=== PATIENT | female | born 1930 | race Caucasian/White ===

== ENCOUNTER 2017-06-27 16:37 | Observation (INO) | payer MEDICARE ==
--- NOTE | 2017-06-27 17:47 | ERPHSYRPT ---
- History of Present Illness Time Seen by Provider: 06/27/17 16:53 Source: patient Exam Limitations: no limitations Patient Subjective Stated Complaint: started having pain right lower leg yesterday. denies hx of dvt. Triage Nursing Assessment: to room per w/c. skin w/d, color normal. right leg tender to touch. no increased heat noted to leg. no swelling noted. good pedal pulse. Physician History: Pt started c/o pain ion her right lower leg since yesterday. She denies injury , no significant swelling, no chest pain, cough, SOB, wheezing or fever. She has varicose veins, but denies surgery or blood clots in the past. Occurred: yesterday Quality: constant Severity of Pain-Max: mild Severity of Pain-Current: mild Lower Extremities Pain: leg: right Modifying Factors: Improves With: nothing Associated Symptoms: none Allergies/Adverse Reactions: aspirin Allergy (Verified 06/27/17 16:51) Penicillins Allergy (Verified 06/27/17 16:50) Hx Tetanus, Diphtheria Vaccination/Date Given: No Hx Influenza Vaccination/Date Given: Yes Hx Pneumococcal Vaccination/Date Given: No - Review of Systems Constitutional: No Symptoms Respiratory: No Symptoms Cardiac: No Symptoms Musculoskeletal: Other (right lower leg pain) All Other Systems: Reviewed and Negative - Past Medical History Pertinent Past Medical History: Yes Neurological History: No Pertinent History ENT History: Cataracts Cardiac History: Arrhythmia Respiratory History: No Pertinent History Endocrine Medical History: Diabetes Type II Musculoskeletal History: Rheumatoid Arthritis GI Medical History: Hemorrhoids History: No Pertinent History Psycho-Social History: Anxiety Female Reproductive Disorders: Other Other Medical History: LOST WEIGHT NO LONGER DIABETIC, AFIB, CATARACTS REMOVED, PROLAPSED UTERUS - Past Surgical History Past Surgical History: Yes Neuro Surgical History: No Pertinent History Cardiac: No Pertinent History Respiratory: No Pertinent History Gastrointestinal: Other Genitourinary: No Pertinent History Musculoskeletal: No Pertinent History Female Surgical History: Other Other Surgical History: HYSTERECTOMY, BlaDDER TAC X 2. mass in abd removed-- benign. lt hip fx--replacement 09/21 - Social History Smoking Status: Never smoker Exposure to second hand smoke: No Drug Use: none Patient Lives Alone: Yes - Female History Hx Now: No - Nursing Vital Signs Nursing Vital Signs: Initial Vital Signs Temperature 97.4 F 06/27/17 16:40 Pulse Rate 78 06/27/17 16:40 Respiratory Rate 16 04/21/18 16:40 Blood Pressure 150/85 06/27/17 16:40 O2 Sat by Pulse Oximetry 97 06/27/17 16:40 Pain Scale Pain Intensity [Right Calf] 8 Pain Intensity 0 - Physical Exam General Appearance: no apparent distress Eyes, Ears, Nose, Throat Exam: normal ENT inspection Neck Exam: normal inspection, non-tender, supple Cardiovascular/Respiratory Exam: chest non-tender, normal breath sounds, regular rate/rhythm, heart sounds normal, no ecchymosis, no JVD Gastrointestinal/Abdominal Exam: non-tender, soft, no organomegaly Back Exam: normal inspection, No CVA tenderness Legs Exam: right leg: pain (right lateral lower leg, fibular area, severe varicose veins, no discoloration, edema, good distal pulses.) Knees Exam: right knee: non-tender Neuro/Tendon Exam: normal motor functions Mental Status Exam: alert, oriented x 3 Skin Exam: normal color, warm, dry, No rash SpO2 Interpretation: normal SpO2: 97 Oxygen Delivery: Room Air - Course Nursing assessment & vital signs reviewed: Yes - Radiology Ultrasound Exam Right Venous Lower Extremity Ultrasound: tele radiology report, Other (DVT Right leg) Ordered Tests: Active Orders 24 hr Category Date Time Status Clean Catch Urine Specimen STAT Care 06/27/17 18:27 Active Code Status Order ROUTINE Care 06/27/17 18:55 Ordered Fall Protocol ROUTINE Care 06/27/17 18:56 Ordered IV Care Q6H Care 06/27/17 18:[address] in Observation ROUTINE Care 06/27/17 18:55 Ordered Telemetry ROUTINE Care 06/27/17 18:55 Ordered Vital Signs Q4H Care 06/27/17 18:55 Ordered Cardiac Diet Diet 06/27/17 Dinner Ordered VENOUS UNILAT/LIMITED EXTREMIT [US] Stat Exams 06/27/17 16:58 Taken BMP Stat Lab 06/27/17 18:00 Completed CBC Stat Lab 06/27/17 18:00 Completed PROTIME WITH INR Stat Lab 06/27/17 18:00 Received PTT Stat Lab 06/27/17 18:00 Received UA W/RFX UR CULTURE Stat Lab 06/27/17 18:27 Ordered Medication Summary Generic Name Dose Route Start Last Admin Trade Name Freq PRN Reason Stop Dose Admin Enoxaparin Sodium 60 mg 06/27/17 22:00 Enoxaparin Sodium SQ 07/27/17 21:59 BID [facility] Lab/Rad Data: Laboratory Result Diagrams 06/27/17 18:00 06/27/17 18:00 Laboratory Results 06/27/17 06/27/17 Range/Units 18:00 18:00 WBC 6.9 (4.0-10.5) K/mm3 RBC 4.32 (4.1-5.4) M/mm3 Hgb 13.4 (12.0-16.0) gm/dl Hct 39.9 (35-47) % MCV 92.4 (78-100) fl MCH 31.0 (26-32) pg MCHC 33.6 (32-36) g/dl RDW 13.6 (11.5-14.0) % Plt Count 167 (150-450) K/mm3 MPV 10.7 H (6-9.5) fl Sodium 142 (137-145) mmol/L Potassium 3.8 (3.5-5.1) mmol/L Chloride 105 (98-107) mmol/L Carbon Dioxide 26 (22-30) mmol/L Anion Gap 14.4 (5-15) MEQ/L BUN 18 H (7-17) mg/dL Creatinine 0.84 (0.52-1.04) mg/dL Estimated GFR > 60.0 ML/MIN Glucose 180 H (74-106) mg/dL Calcium 9.7 (8.4-10.2) mg/dL - Progress Progress: unchanged Progress Note: 06/27/17 18:[address] Narayanan, discussed our results, she agreed to admit patient for further treatment, patient was informed, and agreed. She has been stable, and pain free. Discussed with : Lday Will see patient in: hospital (observation) - Departure Time of Disposition: 19:02 Departure Disposition: Observation Clinical Impression: DVT (deep venous thrombosis) Qualifiers: DVT location: lower extremity Affected thrombotic vein of extremity: unspecified vein of extremity Chronicity: acute Laterality: right Qualified Code (s): I82.401 - Acute embolism and thrombosis of unspecified deep veins of right lower extremity Condition: Stable Critical Care Time: No Referrals: ABY GOMEZ [Primary Care Provider] -
[2017-06-27 18:18] LABS: Hematocrit 39.9 % (35-47); Hemoglobin 13.4 gm/dl (12.0-16.0); Mean Cell Volume 92.4 fl (78-100); Mean Corpuscular Hgb Concent. 33.6 g/dl (32-36); Mean Platelet Volume 10.7 fl (6-9.5); Platelet Count 167 K/mm3 (150-450); Red Blood Count 4.32 M/mm3 (4.1-5.4); Red Cell Distribution Width 13.6 % (11.5-14.0); White Blood Count 6.9 K/mm3 (4.0-10.5)
[2017-06-27 18:42] LABS: INR 1.23 (0.8-3.0)
[2017-06-27 18:46] LABS: ANION GAP 14.4 MEQ/L (5-15); BLOOD UREA NITROGEN 18 mg/dL (7-17); CHLORIDE 105 mmol/L (98-107); Calcium 9.7 mg/dL (8.4-10.2); Carbon Dioxide 26 mmol/L (22-30); Creatinine 1 0.84 mg/dL (0.52-1.04); Glucose 180 mg/dL (74-106); Potassium 3.8 mmol/L (3.5-5.1); SODIUM 142 mmol/L (137-145)
[2017-06-27] MEDS ORDERED: ENOXAPARIN SODIUM SQ ONE (19:08)
[2017-06-27] MEDS ORDERED: Sodium Chloride 0.9% 1000 ML 1,000 ML ONE (19:08)
[2017-06-27] MEDS: Sodium Chloride 0.9% 1000 ML 1,000 ML IV SCH (19:10)
[2017-06-27] MEDS: ENOXAPARIN SODIUM SQ SCH (19:11)
[2017-06-27 19:47] LABS: Appearance HAZY (CLEAR); Bilirubin NEGATIVE (NEGATIVE); Blood NEGATIVE Ery/ul (0-5); Glucose NEGATIVE (NEGATIVE); Ketones NEGATIVE (NEGATIVE); Leukocyte Esterase 2+ (NEGATIVE); Nitrite NEGATIVE (NEGATIVE); Protein,Urine Dip NEGATIVE (Negative); Urobilinogen NORMAL mg/dL (0-1)
[2017-06-27 19:48] LABS: Bacteria MANY /HPF (NEGATIVE); Epithelial Cells FEW /HPF (FEW)
--- NOTE | 2017-06-27 22:43 | XRAY ---
Indication: Right leg pain/swelling. Two-dimensional sonogram and color Doppler imaging of the major venous vessels of the right leg was performed. Comparison: None There is occluding deep vein thrombosis in the mid to distal femoral vein. Near occluding deep vein thrombosis seen in the proximal femoral, popliteal and posterior tibial veins. The common femoral and greater saphenous veins are negative for thrombosis. Impression: Right leg positive for DVT as detailed. Comment: Preliminary report was given.
[2017-06-28] MEDS ORDERED: Norco 10/325 MG Tablet PO PRN (01:42)
[2017-06-28] MEDS: OXYCODONE-ACETAMINOPHEN 10-325 PO PRN ×2 (01:56→15:36)
[2017-06-28] MEDS: Sodium Chloride 0.9% 1000 ML 1,000 ML IV SCH ×2 (05:52→17:33)
[2017-06-28] MEDS: ENOXAPARIN SODIUM SQ SCH ×2 (10:20→22:21)
--- NOTE | 2017-06-28 13:29 | PCM.HP ---
History of Present Illness - Chief Complaint Chief Complaint: DVT History of Present Illness: is a 87 year old female pt of Dr. Flores who started having RLE pain 2d ago. It hurt to walk on the leg. She came to ER and was found to have extensive DVT and was admitted on SQ lovenox. She did have several plane rides and a long car ride in the past 1 mo. Last night after admission her pain was "terrible" but is much better with percocet. She states it is hard for her to walk around currently wiht this leg. Pt lives alone but has several friends that check on her closely. She has atrial fibrillation and was previously on blood thinners but she had an upper GI bleed so Dr. Flores has been keeping her off of these. She thought maybe she had some trouble bleeding on xarelto, but I see from her chart that she has been on coumadin and eliquis in the past. - Review of Systems Musculoskeletal: Other (leg pain) Psychological: No Anxiety, No Depression, No Suicidal Ideations Hematologic/Lymphatic: Blood Clots All Other Systems: Reviewed and Negative Medications & Allergies Home Medications: Home Medication List Digoxin 0.125 mg Tablet [Lanoxin 0.125MG TABLET] 0.125 mg PO DAILY #30 tablet 03/04/16 [Rx Confirmed 06/27/17] PANTOPRAZOLE 40 mg Tablet [Protonix 40MG Tablet] 40 mg PO DAILY #30 tab [Rx Confirmed 06/27/17] Allergies/Adverse Reactions: Allergies Allergy/AdvReac Type Severity Reaction Status Date / Time aspirin Allergy Verified 06/27/17 16:51 Penicillins Allergy Verified 06/27/17 16:50 - Past Medical History Past Medical History: Yes Neurological History: No Pertinent History ENT History: Cataracts Cardiac History: Arrhythmia Respiratory History: No Pertinent History Endocrine Medical History: No Pertinent History Musculoskelatal History: Rheumatoid Arthritis GI Medical History: Hemorrhoids History: No Pertinent History Pyscho-Social History: Anxiety Reproductive Disorders: Other Comment: LOST WEIGHT NO LONGER DIABETIC, AFIB, CATARACTS REMOVED, PROLAPSED UTERUS - Female History Are you now?: No - Past Surgical History Past Surgical History: Yes Neuro Surgical History: No Pertinent History Cardiac History: No Pertinent History Respiratory Surgery: No Pertinent History GI Surgical History: Other Genitourinary Surgical Hx: No Pertinent History Musculskeletal Surgical Hx: No Pertinent History Female Surgical History: Other Other Surgical History: HYSTERECTOMY, BlaDDER TAC X 2. mass in abd removed-- benign. lt hip fx--replacement 09/21 - Social History Smoking Status: Never smoker Exposure to second hand smoke: No Alcohol: None Drug Use: none - Physical Exam Vital Signs: Vital Signs - 24 hr Temp Pulse Resp BP Pulse Ox 06/28/17 12:00 18 06/28/17 11:17 98.3 F 60 18 118/67 99 06/28/17 08:00 18 06/28/17 07:19 98.6 F 77 18 100/62 96 06/28/17 04:00 98.0 F 70 18 111/66 96 06/28/17 00:00 98.0 F 64 20 128/66 97 06/27/17 21:18 98.5 F 55 L 18 159/80 96 06/27/17 19:02 97 06/27/17 18:55 96 H 18 140/81 98 06/27/17 18:33 71 16 147/90 97 06/27/17 17:59 90 22 143/92 98 06/27/17 16:40 97.4 F 78 16 150/85 97 General Appearance: no apparent distress, alert Neurologic Exam: oriented x 3, cooperative Eye Exam: eyes nml inspection Ears, Nose, Throat Exam: moist mucous membranes Neck Exam: normal inspection, non-tender, No lymphadenopathy Respiratory Exam: normal breath sounds, lungs clear, wheezing (scattered, mild) , No crackles/rales, No rhonchi Cardiovascular Exam: bradycardia, irregular Gastrointestinal/Abdomen Exam: soft, normal bowel sounds, No tenderness, No distention, No mass, No guarding, No rebound Back Exam: normal inspection, No rash Extremity Exam: swelling (RLE mildly enlarged over left. no erythema. nttp. appears neurovascularly intact.) Skin Exam: normal color, warm, dry, No rash Assessment/Plan (1) DVT (deep venous thrombosis) Current Visit: Yes Status: Acute Qualifiers: DVT location: lower extremity Affected thrombotic vein of extremity: unspecified vein of extremity Chronicity: acute Laterality: right Qualified Code(s): I82.401 - Acute embolism and thrombosis of unspecified deep veins of right lower extremity Assessment & Plan: DVT occluding the mid-distal femoral vein. Near occluding in the proximal femoral, popliteal, and posterior tibial veins. With the extent of the DVT and her history of GI bleed, along with uncertainly about which agent she was on when she bled, I will keep her today and have Dr. Flores evaluate tomorrow for which med is appropriate for her on discharge. The leg is not painful currently and is warm and neurovascularly intact. She is having trouble walking on the leg so will consult PT. Pt lives alone. She also has bradycardia, down into the 50s at times but generally over 60. on digoxin - will check a level. Code(s): I82.409 - ACUTE EMBOLISM AND THOMBOS UNSP DEEP VN UNSP LOWER EXTREMITY (2) Bradycardia Current Visit: Yes Status: Acute Code(s): R00.1 - BRADYCARDIA, UNSPECIFIED (3) Atrial fibrillation Current Visit: No Status: Chronic Code(s): I48.91 - UNSPECIFIED ATRIAL FIBRILLATION
[2017-06-28] MEDS: Lanoxin 0.125MG TABLET PO SCH (15:37)
[2017-06-28] MEDS: Protonix 40MG Tablet PO SCH (15:37)
[2017-06-28] MEDS: Norco 10/325 MG Tablet PO PRN (22:21)
[2017-06-29] MEDS: Sodium Chloride 0.9% 1000 ML 1,000 ML IV SCH (03:36)
[2017-06-29] MEDS: Norco 10/325 MG Tablet PO PRN (06:43)
--- NOTE | 2017-06-29 07:50 | PCM.DS ---
Discharge Summary Date of Admission: 06/27/17 19:56 Date of Discharge: 06/29/2017 Admitting Physician: ABY GOMEZ Primary Care Provider: ABY GOMEZ Allergies Allergies aspirin Allergy (Verified 06/27/17 16:51) Penicillins Allergy (Verified 06/27/17 16:50) Hospital Summary - Hospital Course Hospital Course: She has recently returned from [place] where she spent the winter with her son and began noticing increasd pain in her lower extremity it began acutely worsening and she came to ED for evaluation and was found to have a DVT in the right leg with occluding mid to distal femoral vein and near occluding of the prosimal femoral, popliteal and posterior tibial veins. The common femoral and greater saphenous veins were negative. She has no history of DVT but was treated previously with anticoagulation for atrial fibrillation when she developed significant suspected upper gi bleeding in 02/2016 and has been on protonix since then with no rebleeding. She required 2 U PRBC at that visit and did not consent to egd she had a colonoscopy in 2014. She was admitted and treated with lovenox theraputic and did well with no evidence of bleeding. She was initially feeling weak on the pain medication but as the effects wore off she worked with PT and did well and felt comfortable going home. We discussed her high risk of bleeding with the previous GI bleeding and the importance of staying on the protonix. She is to come to ER immediately for any bleeding from GI track vomiting black tarry or coffee ground emesis or black or tarry stools. We discussed different medication options. She is unable to leave the home regularly as she does not drive and does not want the monitoring or diet restrictions with the warfarin. Given high rates of gi bleeding in the xarelto we selected retrial of the eliquis. She will take 10 mg po bid to finish the first 7 days and then decrease to 5mg po bid and plan to treat provoked dvt for 6 months and re-evaluate chronic anticoagulation with her risk of bleeding. Her urine cultures shoed >100k k. pneumonia and given ceftriaxone X1 and started on po antibiotic at discharge. - Vitals & Intake/Output Vital Signs: Vital Signs Temperature 97.9 F 06/29/17 07:15 Pulse Rate 71 06/29/17 07:15 Respiratory Rate 18 06/29/17 07:15 Blood Pressure 141/67 06/29/17 07:15 O2 Sat by Pulse Oximetry 96 06/29/17 07:15 Intake & Output: Intake & Output 06/26/17 06/27/17 06/28/17 06/29/17 11:59 11:59 11:59 11:59 Intake Total 1400 3332 Output Total 800 1500 Balance 600 1832 Weight 65.8 kg - Lab Result Diagrams: 06/27/17 18:00 06/27/17 18:00 Lab Results-Last 24 Hrs: Lab Results-Last 24 Hours 06/28/17 Range/Units 13:20 Digoxin 0.8 (0.8-1.9) ng/mL - Procedures and Test Procedures and Tests throughout Hospitalization: Therapy Orders & Screens 06/28/17 13:32 PT Eval & Treat (MD Order) ROUTINE Reason for Eval:: leg pain (has DVT) - feels like she's not getting around well Diagnosis: DVT Discharge Exam General Appearance: no apparent distress, alert Neurologic Exam: alert, oriented x 3, cooperative, normal mood/affect, nml cerebellar function, sensation nml, No motor deficits Skin Exam: normal color, warm, dry Eye Exam: PERRL, EOMI, eyes nml inspection Ears, Nose, Throat Exam: normal ENT inspection, pharynx normal, moist mucous membranes Neck Exam: normal inspection, non-tender, supple, full range of motion Respiratory Exam: normal breath sounds, lungs clear, No respiratory distress Cardiovascular Exam: regular rate/rhythm, normal heart sounds Gastrointestinal/Abdomen Exam: soft, No tenderness, No mass Extremity Exam: normal inspection, normal range of motion Back Exam: normal inspection, normal range of motion, No CVA tenderness, No vertebral tenderness Pelvic Exam: deferred Rectal Exam: deferred Final Diagnosis/Problem List - Final Discharge Diagnosis/Problem (1) DVT (deep venous thrombosis) Status: Acute Onset Date: ~06/29/17 (2) Atrial fibrillation Status: Chronic Onset Date: ~06/29/17 (3) UTI (urinary tract infection) Status: Acute (4) History of peptic ulcer disease Status: Acute - Discharge Discharge Date: 06/29/17 Disposition: Home, Self-Care Condition: Stable Prescriptions: New Apixaban [Eliquis 5 mg Tablet] 10 mg PO BID #60 tablet Cephalexin Mh 500 mg [Keflex 500 mg] 500 mg PO BID #14 capsule Continue Digoxin 0.125 mg Tablet [Lanoxin 0.125MG TABLET] 0.125 mg PO DAILY #30 tablet PANTOPRAZOLE 40 mg Tablet [Protonix 40MG Tablet] 40 mg PO DAILY #30 tab Instructions: Atrial Fibrillation (DC), Deep Vein Thrombosis (Blood Clots in the Legs) (DC) Follow up with: ABY GOMEZ [Primary Care Provider] - 1 Week Forms: Discharge Instructions
--- NOTE | 2017-06-29 08:03 | PCM.DCORD ---
- Discharge Discharge Date: 06/29/17 Disposition: Home, Self-Care Condition: Stable Prescriptions: New Apixaban [Eliquis 5 mg Tablet] 10 mg PO BID #60 tablet Cephalexin Mh 500 mg [Keflex 500 mg] 500 mg PO BID #14 capsule Continue Digoxin 0.125 mg Tablet [Lanoxin 0.125MG TABLET] 0.125 mg PO DAILY #30 tablet PANTOPRAZOLE 40 mg Tablet [Protonix 40MG Tablet] 40 mg PO DAILY #30 tab Instructions: Atrial Fibrillation (DC), Deep Vein Thrombosis (Blood Clots in the Legs) (DC) Follow up with: ABY GOMEZ [Primary Care Provider] - 1 Week Forms: Discharge Instructions
[2017-06-29] MEDS ORDERED: Senokot-S Tablet PO PRN (08:04)
[2017-06-29] MEDS ORDERED: ROCEPHIN 1 Gm-D5w 50 ml Bag** 1 G/50 ML IVPB IV SCH (10:00)
[2017-06-29] MEDS: ENOXAPARIN SODIUM SQ SCH (10:36)
[2017-06-29] MEDS: Protonix 40MG Tablet PO SCH (10:36)
[2017-06-29] MEDS: Lanoxin 0.125MG TABLET PO SCH (10:36)
[2017-06-29 11:49] VITALS: O2SAT 97
[2017-06-29 16:37] VITALS: BP 153/84; PULSE 69
== END 2017-06-29 16:20 | disposition home or self-care (01) ==
LOC: ED 16:37 → MED SURG 19:56
PROVIDERS: ADMIT Family Medicine; ATTEND Family Medicine
DX: I82.411 Acute embolism and thrombosis of right femoral vein (principal); I48.91 Unspecified atrial fibrillation; N39.0 Urinary tract infection, site not specified; Z87.11 Personal history of peptic ulcer disease; M06.9 Rheumatoid arthritis, unspecified; Z79.899 Other long term (current) drug therapy; F41.9 Anxiety disorder, unspecified
CPT/HCPCS: 36000; 36415; 80048; 80162; 81000; 85027; 85610; 85730; 87077; 87086; 87186; 93268; 93971; 96372; 99284; 99285; J0696; J1650; A9270-GY; G0378

== ENCOUNTER 2017-10-05 11:18 | Observation (INO) | payer MEDICARE ==
[2017-10-05] MEDS ORDERED: Zofran 4 MG/2 ML VIAL IV ONE (11:56)
--- NOTE | 2017-10-05 12:02 | ERPHSYRPT ---
- History of Present Illness Historian: patient Exam Limitations: clinical condition Patient Subjective Stated Complaint: loose stools since thursday and today co weakness.about 10 stools a day. nausea, no vomiting. Triage Nursing Assessment: pt alert arrived per wc, resp easy, skin w/d/p, abd soft, no edema noted Timing/Duration: day(s) Activities at Onset: none Quality: cramping Abdominal Pain Onset Location: LUQ, LLQ Pain Radiation: no radiation Severity of Pain-Max: moderate Severity of Pain-Current: moderate Modifying Factors: Improves With: other (NAUSEA, DIARRHEA) Associated Symptoms: diarrhea, nausea, weakness Previous symptoms: no prior history Hx Tetanus, Diphtheria Vaccination/Date Given: No Hx Influenza Vaccination/Date Given: Yes Hx Pneumococcal Vaccination/Date Given: No <ANTONY ABERNATHY - Last Filed: 10/05/17 12:07> <ABY VALLE - Last Filed: 10/05/17 14:34> - History of Present Illness Time Seen by Provider: 10/05/17 11:40 Physician History: PATIENT WITH A HISTORY OF ATRIAL FIBRILLATION, PEPTIC ULCER DISEASE, COMPLAINS OF LEFT SIDED ABDOMINAL PAIN TODAY ASSOCIATED WITH WATERY DIARRHEA 4-5 EPISODES DAILY FOR 4 DAYS ASSOCIATED WITH GENERALIZED WEAKNESS. DENIES HEADACHE, BLURRED VISION, SLURRED SPEECH, FOCAL WEAKNESS, NUMBNESS OR WEAKNESS. DENIES COUGH, FEVER, URINARY SYMPTOMS. (ANTONY ABERNATHY) Allergies/Adverse Reactions: aspirin Allergy (Verified 10/05/17 11:32) Penicillins Allergy (Verified 10/05/17 11:32) - Review of Systems Constitutional: Weakness, No Fever, No Chills Eyes: No Symptoms Ears, Nose, & Throat: No Symptoms Respiratory: No Symptoms, No Cough, No Dyspnea Cardiac: No Symptoms, No Chest Pain, No Edema, No Syncope Abdominal/Gastrointestinal: Abdominal Pain, Nausea, Diarrhea, No Vomiting Genitourinary Symptoms: No Dysuria Musculoskeletal: No Symptoms, No Back Pain, No Neck Pain Skin: No Rash Neurological: No Dizziness, No Focal Weakness, No Sensory Changes Psychological: No Symptoms Endocrine: No Symptoms All Other Systems: Reviewed and Negative <ANTONY ABERNATHY - Last Filed: 10/05/17 12:07> - Past Medical History Pertinent Past Medical History: Yes Neurological History: No Pertinent History ENT History: Cataracts Cardiac History: No Pertinent History Respiratory History: No Pertinent History Endocrine Medical History: No Pertinent History Musculoskeletal History: Arthritis, Fractures GI Medical History: Hemorrhoids History: No Pertinent History Psycho-Social History: Anxiety Female Reproductive Disorders: Other Other Medical History: LOST WEIGHT NO LONGER DIABETIC, AFIB, CATARACTS REMOVED, PROLAPSED UTERUS - Past Surgical History Past Surgical History: Yes Neuro Surgical History: No Pertinent History Cardiac: No Pertinent History Respiratory: No Pertinent History Gastrointestinal: Other Genitourinary: No Pertinent History Musculoskeletal: No Pertinent History Female Surgical History: Other Other Surgical History: HYSTERECTOMY, BlaDDER TAC X 2. mass in abd removed-- benign. lt hip fx--replacement 09/21 - Social History Smoking Status: Never smoker Exposure to second hand smoke: No Drug Use: none Patient Lives Alone: No - Female History Hx Last Menstrual Period: psot Hx Now: No <ANTONY ABERNATHY - Last Filed: 10/05/17 12:07> - Physical Exam SpO2: 96 Oxygen Delivery: Nasal Cannula <ANTONY ABERNATHY - Last Filed: 10/05/17 12:07> - Nursing Vital Signs Nursing Vital Signs: Initial Vital Signs Temperature 97.8 F 10/05/17 11:24 Pulse Rate 120 H 10/05/17 11:24 Respiratory Rate 16 10/05/17 11:24 Blood Pressure 137/87 10/05/17 11:24 O2 Sat by Pulse Oximetry 96 10/05/17 11:24 Pain Scale Pain Intensity 0 - Course Nursing assessment & vital signs reviewed: Yes EKG Interpreted by Me: RATE ([id number]), Sinus Rhythm, NORMAL AXIS, NORMAL INTERVALS, NORMAL QRS, Non-specific ST Changes - Radiology Exams Chest X-ray Interpretation: Teleradiologist Report, No Pneumonia - CT Exams Abdomen/Pelvis CT Interpretation: Tele-radiologist Report, diverticulitis (mild distal descending/sigmoid o/w normal) <ABY VALLE - Last Filed: 10/05/17 14:34> Ordered Tests: Active Orders 24 hr Category Date Time Status Developer Support Engineer STAT Care 10/05/17 11:54 Active Clean Catch Urine Specimen STAT Care 10/05/17 11:53 Active EKG-ER Only STAT Care 10/05/17 11:53 Active IV Insertion STAT Care 10/05/17 11:53 Active ABDOMEN AND PELVIS W CONTRAST [CT] Stat Exams 10/05/17 11:55 Completed CHEST 1 VIEW (PORTABLE) Stat Exams 10/05/17 12:22 Completed AMYLASE Stat Lab 10/05/17 12:00 Completed BLOOD CULTURE Stat Lab 10/05/17 12:40 Received CBC W DIFF Stat Lab 10/05/17 12:00 Completed CMP Stat Lab 10/05/17 12:00 Completed LIPASE Stat Lab 10/05/17 12:00 Completed PROTIME WITH INR Stat Lab 10/05/17 12:00 Completed TROPONIN Q3H Lab 10/05/17 12:00 Completed TROPONIN Q3H Lab 10/05/17 15:15 Ordered TROPONIN Q3H Lab 10/05/17 18:15 Ordered TROPONIN Q3H Lab 10/05/17 21:15 Ordered TROPONIN Q3H Lab 10/06/17 00:15 Ordered UA W/RFX UR CULTURE Stat Lab 10/05/17 13:39 Completed Medication Summary Generic Name Dose Route Start Last Admin Trade Name Freq PRN Reason Stop Dose Admin Sodium Chloride 1,000 mls @ 100 mls/hr 10/05/17 12:00 10/05/17 12:23 Sodium Chloride 0.9% 1000 Ml IV 11/04/17 11:59 100 mls/hr .Q10H ROSE MARY Administration Discontinued Medications Generic Name Dose Route Start Last Admin Trade Name Freq PRN Reason Stop Dose Admin Ondansetron HCl 4 mg 10/05/17 11:56 10/05/17 12:23 Zofran 4 Mg/2 Ml Vial IV 10/05/17 11:57 4 mg STAT ONE Administration Ondansetron HCl Confirm 10/05/17 12:22 Zofran 4 Mg/2 Ml Vial Administered 10/05/17 12:23 Dose 4 mg .ROUTE .STK-MED ONE Lab/Rad Data: Laboratory Result Diagrams 10/05/17 12:00 10/05/17 12:00 Laboratory Results 10/05/17 10/05/17 10/05/17 Range/Units 13:39 12:00 12:00 WBC (4.0-10.5) K/mm3 RBC (4.1-5.4) M/mm3 Hgb (12.0-16.0) gm/dl Hct (35-47) % MCV (78-100) fl MCH (26-32) pg MCHC (32-36) g/dl RDW (11.5-14.0) % Plt Count (150-450) K/mm3 MPV (6-9.5) fl Gran % (36.0-66.0) % Eos # (Auto) (0-0.5) Absolute Lymphs (auto) (1.0-4.6) Absolute Monos (auto) (0.0-1.3) Lymphocytes % (24.0-44.0) % Monocytes % (0.0-12.0) % Eosinophils % (0.00-5.0) % Basophils % (0.0-0.4) % Absolute Granulocytes (1.4-6.9) Basophils # (0-0.4) PT (9.95-12.35) SECONDS INR (0.8-3.0) Sodium (137-145) mmol/L Potassium (3.5-5.1) mmol/L Chloride (98-107) mmol/L Carbon Dioxide (22-30) mmol/L Anion Gap (5-15) MEQ/L BUN (7-17) mg/dL Creatinine (0.52-1.04) mg/dL Estimated GFR ML/MIN Glucose (74-106) mg/dL Calcium (8.4-10.2) mg/dL Total Bilirubin (0.2-1.3) mg/dL AST (14-36) U/L ALT (0-35) U/L Alkaline Phosphatase (38-126) U/L Troponin I 0.027 (0.000-0.034) ng/mL Serum Total Protein (6.3-8.2) g/dL Albumin (3.5-5.0) g/dL Amylase (30-110) U/L Lipase (23-300) U/L Ur Collection Type CLEAN CATCH Urine Color YELLOW (YELLOW) Urine Appearance CLEAR (CLEAR) Urine pH 5.0 (5-6) Ur Specific [place] 1.005 (1.005-1.025) Urine Protein NEGATIVE (Negative) Urine Ketones NEGATIVE (NEGATIVE) Urine Blood NEGATIVE (0-5) Ashok/ul Urine Nitrite NEGATIVE (NEGATIVE) Urine Bilirubin NEGATIVE (NEGATIVE) Urine Urobilinogen NORMAL (0-1) mg/dL Ur Leukocyte Esterase NEGATIVE (NEGATIVE) Urine Culture Reflexed NO (NO) Urine Glucose NEGATIVE (NEGATIVE) mg/dL Digoxin 1.6 (0.8-1.9) ng/mL Specimen Received 10/05/17 1330 10/05/17 10/05/17 10/05/17 Range/Units 12:00 12:00 12:00 WBC 9.4 (4.0-10.5) K/mm3 RBC 4.36 (4.1-5.4) M/mm3 Hgb 13.7 (12.0-16.0) gm/dl Hct 41.1 (35-47) % MCV 94.3 (78-100) fl MCH 31.4 (26-32) pg MCHC 33.3 (32-36) g/dl RDW 14.3 H (11.5-14.0) % Plt Count 182 (150-450) K/mm3 MPV 11.1 H (6-9.5) fl Gran % 80.7 H (36.0-66.0) % Eos # (Auto) 0.08 (0-0.5) Absolute Lymphs (auto) 0.88 L (1.0-4.6) Absolute Monos (auto) 0.84 (0.0-1.3) Lymphocytes % 9.4 L (24.0-44.0) % Monocytes % 8.9 (0.0-12.0) % Eosinophils % 0.9 (0.00-5.0) % Basophils % 0.1 (0.0-0.4) % Absolute Granulocytes 7.58 H (1.4-6.9) Basophils # 0.01 (0-0.4) PT 25.6 H (9.95-12.35) SECONDS INR 2.18 (0.8-3.0) Sodium 137 (137-145) mmol/L Potassium 3.8 (3.5-5.1) mmol/L Chloride 100 (98-107) mmol/L Carbon Dioxide 27 (22-30) mmol/L Anion Gap 13.6 (5-15) MEQ/L BUN 19 H (7-17) mg/dL Creatinine 1.11 H (0.52-1.04) mg/dL Estimated GFR 49.3 ML/MIN Glucose 132 H (74-106) mg/dL Calcium 9.8 (8.4-10.2) mg/dL Total Bilirubin 1.80 H (0.2-1.3) mg/dL AST 28 (14-36) U/L ALT 20 (0-35) U/L Alkaline Phosphatase 61 (38-126) U/L Troponin I (0.000-0.034) ng/mL Serum Total Protein 7.2 (6.3-8.2) g/dL Albumin 4.1 (3.5-5.0) g/dL Amylase 53 (30-110) U/L Lipase 46 (23-300) U/L Ur Collection Type Urine Color (YELLOW) Urine Appearance (CLEAR) Urine pH (5-6) Ur Specific [place] (1.005-1.025) Urine Protein (Negative) Urine Ketones (NEGATIVE) Urine Blood (0-5) Ashok/ul Urine Nitrite (NEGATIVE) Urine Bilirubin (NEGATIVE) Urine Urobilinogen (0-1) mg/dL Ur Leukocyte Esterase (NEGATIVE) Urine Culture Reflexed (NO) Urine Glucose (NEGATIVE) mg/dL Digoxin (0.8-1.9) ng/mL Specimen Received <ANTONY ABERNATHY - Last Filed: 10/05/17 12:07> - Progress Progress: improved Discussed with : Romaine Will see patient in: hospital (observation) Counseled pt/family regarding: lab results, diagnosis, rad results <ABY VALLE - Last Filed: 10/05/17 14:34> - Progress Progress Note: 10/05/17 12:02 IV FLUIDS NORMAL SALINE 100ML/HR, ZOFRAN 4MG, PROTONIX 40MG IV 10/05/17 12:08 PATIENT CARE ENDORSED TO DR VALLE AT 1225 FOR DISPOSITION (ANTONY ABERNATHY) Pt. states she feels better and without any distress. Wants to go home if possible. Will discuss with Dr. Morris, her lumpia wrapper maker 10/05/17 14:20 (ABY VALLE) <ANTONY ABERNATHY - Last Filed: 10/05/17 12:07> - Departure Time of Disposition: 14:33 Departure Disposition: Observation Critical Care Time: No <ABY VALLE - Last Filed: 10/05/17 14:34> - Departure Clinical Impression: Diverticulitis large intestine w/o perforation or abscess w/o bleeding Condition: Stable Referrals: ABY GOMEZ [Primary Care Provider] -
[2017-10-05 12:17] LABS: BASOPHIL % 0.1 % (0.0-0.4); Basophil (Absolute #) 0.01 (0-0.4); Eosinophil % 0.9 % (0.00-5.0); Eosinophil (Absolute #) 0.08 (0-0.5); Granulocyte Absolute (ANC) 7.58 (1.4-6.9); Granulocytes % 80.7 % (36.0-66.0); Hematocrit 41.1 % (35-47); Hemoglobin 13.7 gm/dl (12.0-16.0); Lymphocyte (Absolute #) 0.88 (1.0-4.6); Lymphocytes % 9.4 % (24.0-44.0); Mean Cell Volume 94.3 fl (78-100); Mean Corpuscular Hemoglobin 31.4 pg (26-32); Mean Corpuscular Hgb Concent. 33.3 g/dl (32-36); Mean Platelet Volume 11.1 fl (6-9.5); Monocyte (Absolute #) 0.84 (0.0-1.3); Monocytes % 8.9 % (0.0-12.0); Platelet Count 182 K/mm3 (150-450); Red Blood Count 4.36 M/mm3 (4.1-5.4); Red Cell Distribution Width 14.3 % (11.5-14.0); White Blood Count 9.4 K/mm3 (4.0-10.5)
[2017-10-05] MEDS ORDERED: Zofran 4 MG/2 ML VIAL ONE (12:22)
[2017-10-05] MEDS: Sodium Chloride 0.9% 1000 ML 1,000 ML IV SCH ×2 (12:23→15:34)
[2017-10-05 12:45] LABS: ALBUMIN 4.1 g/dL (3.5-5.0); ANION GAP 13.6 MEQ/L (5-15); BILIRUBIN,TOTAL 1.8 mg/dL (0.2-1.3); Calcium 9.8 mg/dL (8.4-10.2); Creatinine 1 1.11 mg/dL (0.52-1.04); Potassium 3.8 mmol/L (3.5-5.1); Total Protein 7.2 g/dL (6.3-8.2)
[2017-10-05 12:56] LABS: INR 2.18 (0.8-3.0)
[2017-10-05 13:46] LABS: Appearance CLEAR (CLEAR); Bilirubin NEGATIVE (NEGATIVE); Blood NEGATIVE Ery/ul (0-5); Glucose NEGATIVE (NEGATIVE); Ketones NEGATIVE (NEGATIVE); Leukocyte Esterase NEGATIVE (NEGATIVE); Nitrite NEGATIVE (NEGATIVE); Protein,Urine Dip NEGATIVE (Negative); Specific Gravity 1.005 (1.005-1.025); Urobilinogen NORMAL mg/dL (0-1)
--- NOTE | 2017-10-05 13:47 | XRAY ---
Indication: Lower abdominal pain, nausea, weakness, diarrhea. Multiple contiguous axial images obtained through the abdomen and pelvis using 80 cc Isovue 370 contrast only. Comparison: August 21, 2015. Lung bases again demonstrates mild bibasilar dependent atelectasis and right base calcified granuloma. Heart is not enlarged. Stable small hiatal hernia. Noncontrasted stomach and bowel loops appear nonobstructed. Again scattered colonic diverticulosis with now mild distal descending and sigmoid diverticulitis. No free fluid/air. Previous hysterectomy. Stable hepatic/left renal cysts, gallstones, and splenic calcified granulomas. Remaining liver, gallbladder, pancreas, spleen, adrenal glands, kidneys, and ureters appear unremarkable. Stable mild aortoiliac calcifications. No AAA or pathologic retroperitoneal lymphadenopathy. Osseous structures demonstrates multilevel degenerative changes throughout the spine and grade 1 anterolisthesis of L4 on L5 without spondylolysis. Impression: 1. Again colonic diverticulosis with new mild distal descending and sigmoid diverticulitis. No perforation or complications. 2. Stable small hiatal hernia, hepatic/left renal cysts, and gallstones. 3. Stable degenerative L4 grade 1 spondylolisthesis. CTDI 11.38
--- NOTE | 2017-10-05 13:49 | XRAY ---
Indication: Weakness and diarrhea. Comparison: February 29, 2016. Portable chest again demonstrates minimal left base subsegmental atelectasis/scarring and a few scattered calcified granulomas. Remaining heart and lungs unremarkable. Bony thorax intact again with osteopenia and degenerative changes. Impression: Stable nonacute chest with chronic features.
[2017-10-05] MEDS ORDERED: Levofloxacin 500MG/100ML D5W 500 MG/100 ML BAG IV STA (14:44)
[2017-10-05] MEDS ORDERED: FLAGYL 500 MG IVPB 500 MG/100 ML BAG IV STA (14:45)
[2017-10-05] MEDS ORDERED: FLAGYL 500 MG IVPB 500 MG/100 ML BAG IV ONE (15:07)
[2017-10-05] MEDS ORDERED: TYLENOL 325 MG PO PRN (15:38)
[2017-10-05] MEDS ORDERED: Zofran 4 MG/2 ML VIAL IV PRN (15:38)
--- NOTE | 2017-10-05 19:38 | PCM.HP ---
History of Present Illness - Chief Complaint Chief Complaint: Diverticulitis Date: 10/05/17 History of Present Illness: is a 87 year old female. started Thursday with diarrhea and lower quadrant pain. no fever or chills no nausea or vomiting. She was having difficulty with not making it to the bathroom and incontinence of stool. No known exposure or ingestion. She was feeling more and more weak and called her friend to bring her to the hospital because she was too weak to get here on her own. She lives alone. She has not eaten she states since Thursday. - Review of Systems Constitutional: No Fever, No Chills Eyes: No Symptoms Ears, Nose, & Throat: No Symptoms Respiratory: No Cough, No Short Of Breath Cardiac: No Chest Pain, No Edema, No Syncope Abdominal/Gastrointestinal: Abdominal Pain, Diarrhea, No Nausea, No Vomiting Genitourinary Symptoms: No Dysuria Musculoskeletal: No Back Pain, No Neck Pain Skin: No Rash Neurological: No Dizziness, No Focal Weakness, No Sensory Changes Psychological: No Symptoms Endocrine: No Symptoms Hematologic/Lymphatic: No Symptoms Immunological/Allergic: No Symptoms Medications & Allergies Home Medications: Home Medication List Digoxin 0.125 mg Tablet [Lanoxin 0.125MG TABLET] 0.125 mg PO DAILY #30 tablet 03/04/16 [Rx Confirmed 10/05/17] PANTOPRAZOLE 40 mg Tablet [Protonix 40MG Tablet] 40 mg PO DAILY #30 tab [Rx Confirmed 10/05/17] Apixaban [Eliquis 5 mg Tablet] 10 mg PO BID #60 tablet 06/29/17 [Rx Confirmed 10/05/17] Allergies/Adverse Reactions: Allergies Allergy/AdvReac Type Severity Reaction Status Date / Time aspirin Allergy Verified 10/05/17 15:26 Penicillins Allergy Verified 10/05/17 15:26 - Past Medical History Past Medical History: Yes Neurological History: No Pertinent History ENT History: Cataracts Cardiac History: Arrhythmia, Hypertension Respiratory History: No Pertinent History Endocrine Medical History: No Pertinent History Musculoskelatal History: Arthritis, Fractures GI Medical History: Hemorrhoids History: No Pertinent History Pyscho-Social History: Anxiety Reproductive Disorders: Other Comment: LOST WEIGHT NO LONGER DIABETIC, AFIB, CATARACTS REMOVED, PROLAPSED UTERUS, DVT - Female History Hx Last Menstrual Period: Post Are you now?: No - Past Surgical History Past Surgical History: Yes Neuro Surgical History: No Pertinent History Cardiac History: No Pertinent History Respiratory Surgery: No Pertinent History GI Surgical History: Other Genitourinary Surgical Hx: No Pertinent History Musculskeletal Surgical Hx: No Pertinent History Female Surgical History: Other Other Surgical History: HYSTERECTOMY, BlaDDER TAC X 2. mass in abd removed-- benign. lt hip fx--replacement 09/21 - Social History Smoking Status: Never smoker Exposure to second hand smoke: No Alcohol: None Drug Use: none - Physical Exam Vital Signs: Vital Signs - 24 hr Temp Pulse Resp BP Pulse Ox 10/05/17 16:14 97.6 F 87 16 160/76 98 10/05/17 15:29 97.4 F 87 16 160/76 98 10/05/17 15:23 97.4 F 87 16 160/76 98 10/05/17 15:12 97.6 F 84 16 114/76 98 10/05/17 14:31 97.8 F 98 H 16 131/73 97 10/05/17 13:49 97.8 F 100 H 16 142/80 97 10/05/17 12:55 70 16 145/82 98 10/05/17 12:29 97.8 F 98 H 18 145/82 97 10/05/17 12:22 96 10/05/17 11:24 97.8 F 120 H 16 137/87 96 General Appearance: no apparent distress, alert Neurologic Exam: alert, oriented x 3, cooperative, normal mood/affect, nml cerebellar function, nml station & gait, sensation nml, No motor deficits Eye Exam: PERRL/EOMI, eyes nml inspection Ears, Nose, Throat Exam: normal ENT inspection, TMs normal, pharynx normal, moist mucous membranes Neck Exam: normal inspection, non-tender, supple, full range of motion Respiratory Exam: normal breath sounds, lungs clear, No respiratory distress Cardiovascular Exam: regular rate/rhythm, normal heart sounds, normal peripheral pulses Gastrointestinal/Abdomen Exam: soft, normal bowel sounds, tenderness (mild left lower quadrant), No mass Back Exam: normal inspection, normal range of motion, No CVA tenderness, No vertebral tenderness Extremity Exam: normal inspection, normal range of motion, pelvis stable Skin Exam: normal color, warm, dry, No rash Lymphatic Exam: No adenopathy Results - Labs Lab/Micro Results: Lab Results-Last 24 Hours 10/05/17 10/05/17 10/05/17 Range/Units 12:00 12:00 12:00 WBC 9.4 (4.0-10.5) K/mm3 RBC 4.36 (4.1-5.4) M/mm3 Hgb 13.7 (12.0-16.0) gm/dl Hct 41.1 (35-47) % MCV 94.3 (78-100) fl MCH 31.4 (26-32) pg MCHC 33.3 (32-36) g/dl RDW 14.3 H (11.5-14.0) % Plt Count 182 (150-450) K/mm3 MPV 11.1 H (6-9.5) fl Gran % 80.7 H (36.0-66.0) % Eos # (Auto) 0.08 (0-0.5) Absolute Lymphs (auto) 0.88 L (1.0-4.6) Absolute Monos (auto) 0.84 (0.0-1.3) Lymphocytes % 9.4 L (24.0-44.0) % Monocytes % 8.9 (0.0-12.0) % Eosinophils % 0.9 (0.00-5.0) % Basophils % 0.1 (0.0-0.4) % Absolute Granulocytes 7.58 H (1.4-6.9) Basophils # 0.01 (0-0.4) PT 25.6 H (9.95-12.35) SECONDS INR 2.18 (0.8-3.0) Sodium 137 (137-145) mmol/L Potassium 3.8 (3.5-5.1) mmol/L Chloride 100 (98-107) mmol/L Carbon Dioxide 27 (22-30) mmol/L Anion Gap 13.6 (5-15) MEQ/L BUN 19 H (7-17) mg/dL Creatinine 1.11 H (0.52-1.04) mg/dL Estimated GFR 49.3 ML/MIN Glucose 132 H (74-106) mg/dL Calcium 9.8 (8.4-10.2) mg/dL Total Bilirubin 1.80 H (0.2-1.3) mg/dL AST 28 (14-36) U/L ALT 20 (0-35) U/L Alkaline Phosphatase 61 (38-126) U/L Troponin I (0.000-0.034) ng/mL Serum Total Protein 7.2 (6.3-8.2) g/dL Albumin 4.1 (3.5-5.0) g/dL Amylase 53 (30-110) U/L Lipase 46 (23-300) U/L Ur Collection Type Urine Color (YELLOW) Urine Appearance (CLEAR) Urine pH (5-6) Ur Specific [place] (1.005-1.025) Urine Protein (Negative) Urine Ketones (NEGATIVE) Urine Blood (0-5) Ashok/ul Urine Nitrite (NEGATIVE) Urine Bilirubin (NEGATIVE) Urine Urobilinogen (0-1) mg/dL Ur Leukocyte Esterase (NEGATIVE) Urine Culture Reflexed (NO) Urine Glucose (NEGATIVE) mg/dL Digoxin (0.8-1.9) ng/mL Specimen Received 10/05/17 10/05/17 10/05/17 Range/Units 12:00 12:00 13:39 WBC (4.0-10.5) K/mm3 RBC (4.1-5.4) M/mm3 Hgb (12.0-16.0) gm/dl Hct (35-47) % MCV (78-100) fl MCH (26-32) pg MCHC (32-36) g/dl RDW (11.5-14.0) % Plt Count (150-450) K/mm3 MPV (6-9.5) fl Gran % (36.0-66.0) % Eos # (Auto) (0-0.5) Absolute Lymphs (auto) (1.0-4.6) Absolute Monos (auto) (0.0-1.3) Lymphocytes % (24.0-44.0) % Monocytes % (0.0-12.0) % Eosinophils % (0.00-5.0) % Basophils % (0.0-0.4) % Absolute Granulocytes (1.4-6.9) Basophils # (0-0.4) PT (9.95-12.35) SECONDS INR (0.8-3.0) Sodium (137-145) mmol/L Potassium (3.5-5.1) mmol/L Chloride (98-107) mmol/L Carbon Dioxide (22-30) mmol/L Anion Gap (5-15) MEQ/L BUN (7-17) mg/dL Creatinine (0.52-1.04) mg/dL Estimated GFR ML/MIN Glucose (74-106) mg/dL Calcium (8.4-10.2) mg/dL Total Bilirubin (0.2-1.3) mg/dL AST (14-36) U/L ALT (0-35) U/L Alkaline Phosphatase (38-126) U/L Troponin I 0.027 (0.000-0.034) ng/mL Serum Total Protein (6.3-8.2) g/dL Albumin (3.5-5.0) g/dL Amylase (30-110) U/L Lipase (23-300) U/L Ur Collection Type CLEAN CATCH Urine Color YELLOW (YELLOW) Urine Appearance CLEAR (CLEAR) Urine pH 5.0 (5-6) Ur Specific [place] 1.005 (1.005-1.025) Urine Protein NEGATIVE (Negative) Urine Ketones NEGATIVE (NEGATIVE) Urine Blood NEGATIVE (0-5) Ashok/ul Urine Nitrite NEGATIVE (NEGATIVE) Urine Bilirubin NEGATIVE (NEGATIVE) Urine Urobilinogen NORMAL (0-1) mg/dL Ur Leukocyte Esterase NEGATIVE (NEGATIVE) Urine Culture Reflexed NO (NO) Urine Glucose NEGATIVE (NEGATIVE) mg/dL Digoxin 1.6 (0.8-1.9) ng/mL Specimen Received 10/05/17 1330 10/05/17 Range/Units 15:15 WBC (4.0-10.5) K/mm3 RBC (4.1-5.4) M/mm3 Hgb (12.0-16.0) gm/dl Hct (35-47) % MCV (78-100) fl MCH (26-32) pg MCHC (32-36) g/dl RDW (11.5-14.0) % Plt Count (150-450) K/mm3 MPV (6-9.5) fl Gran % (36.0-66.0) % Eos # (Auto) (0-0.5) Absolute Lymphs (auto) (1.0-4.6) Absolute Monos (auto) (0.0-1.3) Lymphocytes % (24.0-44.0) % Monocytes % (0.0-12.0) % Eosinophils % (0.00-5.0) % Basophils % (0.0-0.4) % Absolute Granulocytes (1.4-6.9) Basophils # (0-0.4) PT (9.95-12.35) SECONDS INR (0.8-3.0) Sodium (137-145) mmol/L Potassium (3.5-5.1) mmol/L Chloride (98-107) mmol/L Carbon Dioxide (22-30) mmol/L Anion Gap (5-15) MEQ/L BUN (7-17) mg/dL Creatinine (0.52-1.04) mg/dL Estimated GFR ML/MIN Glucose (74-106) mg/dL Calcium (8.4-10.2) mg/dL Total Bilirubin (0.2-1.3) mg/dL AST (14-36) U/L ALT (0-35) U/L Alkaline Phosphatase (38-126) U/L Troponin I 0.020 (0.000-0.034) ng/mL Serum Total Protein (6.3-8.2) g/dL Albumin (3.5-5.0) g/dL Amylase (30-110) U/L Lipase (23-300) U/L Ur Collection Type Urine Color (YELLOW) Urine Appearance (CLEAR) Urine pH (5-6) Ur Specific [place] (1.005-1.025) Urine Protein (Negative) Urine Ketones (NEGATIVE) Urine Blood (0-5) Ashok/ul Urine Nitrite (NEGATIVE) Urine Bilirubin (NEGATIVE) Urine Urobilinogen (0-1) mg/dL Ur Leukocyte Esterase (NEGATIVE) Urine Culture Reflexed (NO) Urine Glucose (NEGATIVE) mg/dL Digoxin (0.8-1.9) ng/mL Specimen Received - Radiology Impressions Radiology Exams & Impressions: Radiology Procedures Category Date Time Status ABDOMEN AND PELVIS W CONTRAST [CT] Stat Exams 10/05/17 11:55 Completed CHEST 1 VIEW (PORTABLE) Stat Exams 10/05/17 12:22 Completed Assessment/Plan (1) Diverticulitis large intestine w/o perforation or abscess w/o bleeding Current Visit: Yes Status: Acute Assessment & Plan: mild with weakness and living alone will continue with the levaquin and flagyl and iv hydration advance diet as tolerated. activity as tolerated continue chronic eliquis for her hx of dvt and afib home when able to safely tolerate po and ambulate Code(s): K57.32 - DVTRCLI OF LG INT W/O PERFORATION OR ABSCESS W/O BLEEDING (2) History of peptic ulcer disease Current Visit: Yes Status: Chronic Code(s): Z87.11 - PERSONAL HISTORY OF PEPTIC ULCER DISEASE (3) DVT (deep venous thrombosis) Current Visit: Yes Status: Chronic Onset Date: ~06/29/17 Code(s): I82.409 - ACUTE EMBOLISM AND THOMBOS UNSP DEEP VN UNSP LOWER EXTREMITY (4) Atrial fibrillation Current Visit: Yes Status: Chronic Onset Date: ~06/29/17 Code(s): I48.91 - UNSPECIFIED ATRIAL FIBRILLATION
[2017-10-05] MEDS: ELIQUIS 2.5 MG TABLET PO SCH (20:50)
[2017-10-05] MEDS: FLAGYL 500 MG IVPB 500 MG/100 ML BAG IV SCH (22:34)
[2017-10-06] MEDS: FLAGYL 500 MG IVPB 500 MG/100 ML BAG IV SCH ×2 (05:25→13:38)
[2017-10-06 05:41] LABS: Granulocyte Absolute (ANC) 4.73 (1.4-6.9); Hemoglobin 12.3 gm/dl (12.0-16.0); Mean Cell Volume 95.1 fl (78-100); Mean Corpuscular Hemoglobin 31.6 pg (26-32); Mean Corpuscular Hgb Concent. 33.2 g/dl (32-36); Platelet Count 164 K/mm3 (150-450); Red Blood Count 3.89 M/mm3 (4.1-5.4); White Blood Count 6.9 K/mm3 (4.0-10.5)
[2017-10-06 06:13] LABS: ANION GAP 11.1 MEQ/L (5-15); BLOOD UREA NITROGEN 13 mg/dL (7-17); CHLORIDE 106 mmol/L (98-107); Calcium 8.6 mg/dL (8.4-10.2); Carbon Dioxide 25 mmol/L (22-30); Creatinine 1 0.85 mg/dL (0.52-1.04); Glucose 106 mg/dL (74-106); Potassium 3.8 mmol/L (3.5-5.1); SODIUM 138 mmol/L (137-145)
[2017-10-06 07:42] LABS: Lymphocytes 16 % (24-44); Monocyte 5 % (0.0-12.0); Neutrophils 79 % (36.0-66.0); Platelet Estimate NORMAL (NORMAL); Total Cells Counted 100
[2017-10-06] MEDS ORDERED: Protonix 40MG Tablet PO SCH (10:00)
[2017-10-06] MEDS ORDERED: Levofloxacin 500MG/100ML D5W 500 MG/100 ML BAG IV SCH (10:00)
[2017-10-06] MEDS ORDERED: Lanoxin 0.125MG TABLET PO SCH (10:00)
[2017-10-06] MEDS: ELIQUIS 2.5 MG TABLET PO SCH (10:22)
[2017-10-06 11:35] VITALS: BP 110/63; PULSE 81; O2SAT 96
--- NOTE | 2017-10-06 12:45 | PCM.DCORD ---
- Discharge Discharge Date: 10/06/17 Disposition: Home, Self-Care Condition: Stable Prescriptions: New Metronidazole 500 mg [Flagyl 500 MG] 500 mg PO TID #21 tablet Levofloxacin [Levaquin] 500 mg PO DAILY #7 tablet Continue Digoxin 0.125 mg Tablet [Lanoxin 0.125MG TABLET] 0.125 mg PO DAILY #30 tablet PANTOPRAZOLE 40 mg Tablet [Protonix 40MG Tablet] 40 mg PO DAILY #30 tab Apixaban [Eliquis 5 mg Tablet] 10 mg PO BID #60 tablet Follow up with: ABY GOMEZ [Primary Care Provider] - 1 Week
--- NOTE | 2017-10-06 20:15 | PCM.DS ---
Discharge Summary Date of Admission: 10/05/17 15:21 Date of Discharge: 10/06/17 Admitting Physician: ABY GOMEZ Primary Care Provider: ABY GOMEZ Allergies Allergies aspirin Allergy (Verified 10/05/17 15:26) Penicillins Allergy (Verified 10/05/17 15:26) Hospital Summary - Hospital Course Hospital Course: She presented with lower abdominal pain and diarrhea for 3 days with weakness and not eating for 3 days. She was found to have diverticulitis of sigmoid colon. Started on iv fluids flagyl + levaquin and was improved tolerating po well with diarrhea resolved and pain much improved she was walking well on her own and was discharged to home to complete the antibiotic coarse. - Vitals & Intake/Output Vital Signs: Vital Signs Temperature 97.8 F 10/06/17 11:34 Pulse Rate 81 10/06/17 11:34 Respiratory Rate 16 10/06/17 11:34 Blood Pressure 110/63 10/06/17 11:34 O2 Sat by Pulse Oximetry 96 10/06/17 11:34 Intake & Output: Intake & Output 10/04/17 10/05/17 10/06/17 10/07/17 11:59 11:59 11:59 11:59 Intake Total 600 120 Balance 600 120 Weight 63.503 kg 69.8 kg - Lab Result Diagrams: 10/06/17 05:10 10/06/17 05:10 Lab Results-Last 24 Hrs: Lab Results-Last 24 Hours 10/06/17 10/06/17 Range/Units 05:10 05:10 WBC 6.9 (4.0-10.5) K/mm3 RBC 3.89 L (4.1-5.4) M/mm3 Hgb 12.3 (12.0-16.0) gm/dl Hct 37.0 (35-47) % MCV 95.1 (78-100) fl MCH 31.6 (26-32) pg MCHC 33.2 (32-36) g/dl RDW 14.0 (11.5-14.0) % Plt Count 164 (150-450) K/mm3 MPV 11.0 H (6-9.5) fl Absolute Granulocytes 4.73 (1.4-6.9) Segmented Neutrophils 79 H (36.0-66.0) % Lymphocytes (Manual) 16 L (24-44) % Monocytes (Manual) 5 (0.0-12.0) % Platelet Estimate NORMAL (NORMAL) RBC Morphology NORMAL Sodium 138 (137-145) mmol/L Potassium 3.8 (3.5-5.1) mmol/L Chloride 106 (98-107) mmol/L Carbon Dioxide 25 (22-30) mmol/L Anion Gap 11.1 (5-15) MEQ/L BUN 13 (7-17) mg/dL Creatinine 0.85 (0.52-1.04) mg/dL Estimated GFR > 60.0 ML/MIN Glucose 106 (74-106) mg/dL Calcium 8.6 (8.4-10.2) mg/dL - Radiology Exams Ordered Rad Exams-Entire Visit: Radiology Procedures Category Date Time Status ABDOMEN AND PELVIS W CONTRAST [CT] Stat Exams 10/05/17 11:55 Completed CHEST 1 VIEW (PORTABLE) Stat Exams 10/05/17 12:22 Completed Discharge Exam General Appearance: no apparent distress, alert Neurologic Exam: alert, oriented x 3, cooperative, normal mood/affect, nml cerebellar function, sensation nml, No motor deficits Skin Exam: normal color, warm, dry Eye Exam: PERRL, EOMI, eyes nml inspection Ears, Nose, Throat Exam: normal ENT inspection, pharynx normal, moist mucous membranes Neck Exam: normal inspection, non-tender, supple, full range of motion Respiratory Exam: normal breath sounds, lungs clear, No respiratory distress Cardiovascular Exam: murmur, irregular Gastrointestinal/Abdomen Exam: soft, No tenderness, No mass Extremity Exam: normal inspection, normal range of motion Back Exam: normal inspection, normal range of motion, No CVA tenderness, No vertebral tenderness Pelvic Exam: deferred Rectal Exam: deferred Final Diagnosis/Problem List - Final Discharge Diagnosis/Problem (1) Diverticulitis large intestine w/o perforation or abscess w/o bleeding Status: Acute Onset Date: ~10/06/17 (2) History of peptic ulcer disease Status: Chronic (3) DVT (deep venous thrombosis) Status: Chronic Onset Date: ~06/29/17 (4) Atrial fibrillation Status: Chronic Onset Date: ~06/29/17 - Discharge Discharge Date: 10/06/17 Disposition: Home, Self-Care Condition: Stable Prescriptions: New Metronidazole 500 mg [Flagyl 500 MG] 500 mg PO TID #21 tablet Levofloxacin [Levaquin] 500 mg PO DAILY #7 tablet Continue Digoxin 0.125 mg Tablet [Lanoxin 0.125MG TABLET] 0.125 mg PO DAILY #30 tablet PANTOPRAZOLE 40 mg Tablet [Protonix 40MG Tablet] 40 mg PO DAILY #30 tab Apixaban [Eliquis 5 mg Tablet] 10 mg PO BID #60 tablet Instructions: Diverticulitis (DC) Follow up with: ABY GOMEZ [Primary Care Provider] - 10/13/17 10:45 am Forms: Discharge Instructions
== END 2017-10-06 14:40 | disposition home or self-care (01) ==
LOC: ED 11:18 → MED SURG 15:21
PROVIDERS: ADMIT Family Medicine; ATTEND Family Medicine
DX: K57.32 Diverticulitis of large intestine without perforation or abscess without bleeding (principal); Z87.11 Personal history of peptic ulcer disease; Z86.718 Personal history of other venous thrombosis and embolism; I48.91 Unspecified atrial fibrillation; I10 Essential (primary) hypertension; M19.90 Unspecified osteoarthritis, unspecified site; F41.9 Anxiety disorder, unspecified; Z79.01 Long term (current) use of anticoagulants; Z79.899 Other long term (current) drug therapy
CPT/HCPCS: 36000; 36415; 71045; 74177; 80048; 80053; 80162; 81002; 82150; 83690; 84484; 85025; 85610; 87040; 93005; 93041; 96360; 96365; 96374; 99285; G0378; J1956; J2405; A9270-GY